=== PATIENT | male | born 1955 | race Two or more races ===

== ENCOUNTER 2018-12-24 19:07 | Inpatient (IN) | payer OTHER ==
[~2018-12-24] VITALS: Ht 182.9 cm; Wt 6.0 kg
[2018-12-24] MEDS ORDERED: COZAAR25 MG (19:42)
== END 2018-12-28 20:53 | disposition home or self-care (01) | DRG 392 ==
LOC: ER 19:07 → SEC-K 12-25 11:39 → MEDJ 12-25 11:39 → SURH 12-25 17:22 → MEDJ 12-25 18:06 → MEDI 12-25 18:06 → MEDJ 12-26 11:24
PROVIDERS: ADMIT Internal Medicine
DX: K57.32 Diverticulitis of large intestine without perforation or abscess without bleeding (principal)